=== PATIENT | female | born 1980 | race Hispanic/Latino ===

== ENCOUNTER 2017-05-18 10:51 | Emergency (ER) | payer OTHER ==
[2017-05-18 10:57] VITALS: BP 117/86; PULSE 93; RESP 16; TEMP 96; O2SAT 100
--- NOTE | 2017-05-18 11:11 | ED PDOC ---
HPI: Abdomen Time Seen by Provider: 05/18/17 10:59 Additional Complaint(s): Patient is a 37 y/o F A1, LMP March, home test positive, presenting with suprapubic cramping and vaginal bleeding. Patient reports vaginal bleeding that began 2 days ago. It stopped yesterday but then continued today with some passage of clots so she presented to ED. Denies fever , dysuria, nausea/vomiting or current abdominal pain. Past Medical History Vital Signs: Last Vital Signs Temp 96.0 F L 05/18/17 10:56 Pulse 93 H 05/18/17 10:56 Resp 16 05/18/17 10:56 BP 117/86 05/18/17 10:56 Pulse Ox 100 05/18/17 13:00 - Family History Family History: States: No Known Family Hx - Home Medications Home Medications: Ambulatory Orders Medication Instructions Recorded Cyclobenzaprine [Flexeril] 5 mg PO TID PRN #15 tab 03/09/15 Naproxen 500 mg PO BID #30 tab 03/09/15 - Allergies Allergies/Adverse Reactions: Allergies Allergy/AdvReac Type Severity Reaction Status Date / Time No Known Allergies Allergy Verified 05/18/17 11:06 Review of Systems ROS Statement: Except As Marked, All Systems Reviewed And Found Negative Constitutional: Negative for: Fever, Chills Cardiovascular: Negative for: Chest Pain, Palpitations Respiratory: Negative for: Cough, Shortness of Breath, SOB with Exertion, Wheezing Gastrointestinal: Positive for: Abdominal Pain (suprapubic cramping now resolved ). Negative for: Nausea, Vomiting, Diarrhea, Constipation Genitourinary Female: Positive for: Vaginal Bleeding. Negative for: Dysuria, Frequency, Incontinence, Hematuria Musculoskeletal: Negative for: Neck Pain Neurological: Negative for: Weakness, Numbness, Altered Mental Status, Headache Physical Exam - Reviewed Nursing Documentation Reviewed: Yes Vital Signs Reviewed: Yes - Physical Exam Appears: Positive for: Well, Non-toxic Skin: Positive for: Normal Color, Warm, DRY Eye Exam: Positive for: EOMI, Normal appearance, PERRL Neck: Positive for: Supple Cardiovascular/Chest: Positive for: Regular Rate, Rhythm Respiratory: Positive for: CNT, Normal Breath Sounds Gastrointestinal/Abdominal: Positive for: Soft. Negative for: Tenderness Back: Positive for: Normal Inspection. Negative for: L CVA Tenderness, R CVA Tenderness Extremity: Positive for: Normal ROM. Negative for: Tenderness, Pedal Edema Neurologic/Psych: Positive for: Alert, commercial administrator II-XII, Gait (steady) - Laboratory Results Result Diagrams: 05/18/17 11:30 05/18/17 11:30 - ECG O2 Sat by Pulse Oximetry: 100 Medical Decision Making Medical Decision Making: Patient is and presenting with vaginal bleeding. No current abdominal pain. R/o ectopic --labs --transvaginal u/s 12:14PM bhcg>3700. P:u/s and type/screen Patient reported that she had to go to work. I informed her that her blood screen had not resulted (hemolyzed sample on first attempt) which is a test i need to ensure healthy additional pregnancies and that I need ultrasound to r/o ectopic . I explained to patient and that I was concerned for life threatening ectopic that could rupture. Patient agreed to stay till 1:30 for labs and u/s. 12:42 Nurse went to reevaluate patient and found her dressed. Patient walked out of ED while nurse was coming to tell me that patient was leaving. Patient had eloped from the ED before I reached her room. Disposition - Clinical Impression Clinical Impression: Vaginal bleeding in - Disposition Disposition: Eloped Disposition Time: 12:47 Condition: UNKNOWN
[2017-05-18 11:54] LABS: ALB/GLOB RATIO 1.1 (1.0-2.1); BASO % 0.4 % (0.0-2.0); BILIRUBIN,TOTAL 0.8 mg/dl (0.2-1.3); CALCIUM 8.4 mg/dL (8.4-10.2); CARBON DIOXIDE 21 mmol/L (22-30); CHLORIDE 108 mmol/L (98-107); EOS # 0.5 K/uL (0.0-0.7); EOS % 4.9 % (0.0-4.0); GFR AFRICAN-AMERICAN > 60; GLUCOSE,RANDOM 88 mg/dL (65-105); LYMPH # 1.7 K/uL (1.0-4.3); LYMPH % 18.1 % (20.0-40.0); MEAN CORPUSCULAR HEMOGLOBIN 30.7 pg (27.0-31.0); MEAN CORPUSCULAR HGB CONC 33.8 g/dL (33.0-37.0); MEAN PLATELET VOLUME 8.7 fl (7.2-11.7); MONO # 0.5 K/uL (0.0-0.8); MONO % 4.8 % (0.0-10.0); NEUT # 6.9 K/uL (1.8-7.0); NEUT % 71.8 % (50.0-75.0); RED CELL DISTRIBUTION WIDTH 13.7 % (11.5-14.5); SODIUM 137 mmol/l (132-148); TOTAL PROTEIN 7.4 G/DL (6.3-8.2); WHITE BLOOD COUNT 9.6 K/uL (4.8-10.8)
[2017-05-18 12:02] LABS: ALKALINE PHOSPHATASE 51 U/L (38-126); ALT/SGPT 29 U/L (9-52); AST/SGOT 26 U/L (14-36); BLOOD UREA NITROGEN 9 mg/dl (7-17); POTASSIUM 4.1 MMOL/L (3.6-5.0)
[2017-05-18 12:44] LABS: PH,URINE 6.5 (5.0-8.0); URINE BILIRUBIN MODERATE (NEGATIVE); URINE BLOOD LARGE (NEGATIVE); URINE COLOR RED (YELLOW); URINE GLUCOSE (UA) NEGATIVE (Normal); URINE KETONE 15 mg/dL (NEGATIVE)
[2017-05-18 12:45] LABS: RBC URINE > 100 /hpf (0-3); URINE LEUKOCYTE ESTERASE TRACE Leu/uL (Negative); URINE PROTEIN > 300 mg/dL (NEGATIVE); WBC URINE 12 /hpf (0-5)
[2017-05-18 12:46] LABS: URINE BACTERIA OCC (<OCC)
== END 2017-05-18 12:45 | disposition left against medical advice (07) ==
LOC: H.ER 10:51
DX: O20.8 Other hemorrhage in early pregnancy (principal)

== ENCOUNTER 2017-05-18 16:32 | Emergency (ER) | payer OTHER ==
[2017-05-18 16:47] VITALS: BP 147/53; PULSE 80; RESP 16; TEMP 97.8; O2SAT 99
--- NOTE | 2017-05-18 16:58 | ED PDOC ---
HPI: Female Pain Time Seen by Provider: 05/18/17 16:49 Chief Complaint (Nursing): Abdominal Pain Chief Complaint (Provider): with vaginal bleeding History Per: Patient Additional Complaint(s): 37 year old female A1, approximately 5 weeks presents to ED with vaginal bleeding that started today. Patient was seen in ER earlier this afternoon but had to leave and she now returns to have ultrasound completed. Patient denies change in vaginal bleeding since previous visit several hours ago. She denies any abdominal pain. Past Medical History Reviewed: Historical Data, Nursing Documentation, Vital Signs Vital Signs: Last Vital Signs Temp 97.8 F 05/18/17 16:44 Pulse 80 05/18/17 16:44 Resp 16 05/18/17 16:44 BP 147/53 L 05/18/17 16:44 Pulse Ox 99 05/18/17 16:44 - Medical History PMH: No Chronic Diseases - Surgical History Surgical History: Appendectomy - Family History Family History: States: No Known Family Hx - Living Arrangements Living Arrangements: With Family - Social History Current smoker - smoking cessation education provided: No Alcohol: None Drugs: Denies - Home Medications Home Medications: Ambulatory Orders Medication Instructions Recorded Cyclobenzaprine [Flexeril] 5 mg PO TID PRN #15 tab 03/09/15 Naproxen 500 mg PO BID #30 tab 03/09/15 Nitrofurantoin Macrocrystals 100 mg PO BID #14 cap 05/18/17 [Macrobid] - Allergies Allergies/Adverse Reactions: Allergies Allergy/AdvReac Type Severity Reaction Status Date / Time No Known Allergies Allergy Verified 05/18/17 16:44 Review of Systems ROS Statement: Except As Marked, All Systems Reviewed And Found Negative Constitutional: Negative for: Fever Gastrointestinal: Negative for: Abdominal Pain Genitourinary Female: Positive for: Vaginal Bleeding Physical Exam - Reviewed Nursing Documentation Reviewed: Yes Vital Signs Reviewed: Yes - Physical Exam Appears: Positive for: Well, Non-toxic, No Acute Distress Skin: Negative for: Rash Eye Exam: Positive for: Normal appearance Cardiovascular/Chest: Positive for: Regular Rate, Rhythm Respiratory: Positive for: Normal Breath Sounds Gastrointestinal/Abdominal: Positive for: Soft. Negative for: Tenderness, Distended, Guarding, Rebound Back: Positive for: Normal Inspection Extremity: Positive for: Normal ROM Neurologic/Psych: Positive for: Alert, Oriented - ECG O2 Sat by Pulse Oximetry: 99 Pulse Ox Interpretation: Normal - Other Rad OB US X-Ray: Read By Radiologist X-Ray Interpretation: see below Medical Decision Making Medical Decision Makin37 year old female with vaginal bleeding Previous records reviewed. Labs are all normal except UTI is noted. Plan: Type and screen OB US Blood type: O positive. US: FINDINGS: Gestation: Intrauterine sac noted without pole/ yolk sac detected. No cardiac activity Uterus/cervix: No myometrial mass. Ovaries: Unremarkable. No mass. Free fluid: No free fluid. IMPRESSION: Intrauterine cannot be confirmed or excluded. Continued sonographic followup and correlation with beta hCG levels as clinically indicated. Patient aware of diagnostic testing results. Rx macrobid for UTI. Patient was advised to return to emergency Department in 2 days for repeat beta. Disposition - Clinical Impression Clinical Impression: Threatened in early , Urinary tract infection - Patient ED Disposition Is Patient to be Admitted: No Counseled Patient/Family Regarding: Studies Performed, Diagnosis, Need For Followup - Disposition [facility]errals: [facility]] Disposition: Routine/Home Disposition Time: 18:34 Condition: STABLE Additional Instructions: Return in 2 days for repeat blood work or sooner if acutely worse. Prescriptions: Nitrofurantoin Macrocrystals [Macrobid] 100 mg PO BID #14 cap Instructions: Threatened Miscarriage (ED), Urinary Tract Infection in Women (ED ), First Trimester Vaginal Bleed (ED) Forms: [employer] (Citizen Of [place])
--- NOTE | 2017-05-19 11:43 | US ---
HISTORY: with bleeding ; LMP is dated 04/02/2017 suggesting estimated gestational age of 6 weeks 4 days. COMPARISON: None available. TECHNIQUE: Transabdominal and transvaginal pelvic ultrasound was performed with longitudinal and transverse images submitted for interpretation. FINDINGS: UTERUS: Measures 10.1 x 7.4 x 6.6 cm. Uterus appears mildly enlarged and anteverted without myometrial mass identified. ENDOMETRIUM: Within the endometrial cavity is a fluid collection measuring a mean diameter of 0.6 cm suggesting estimated gestational age of less than 6 weeks by Stent[employer] ultrasound criteria. No pole yolk sac is identified within the small volume. CERVIX: No cervical abnormality identified. RIGHT OVARY: Measures 1.9 x 1.4 x 1.3 cm . No solid mass. Normal flow. LEFT OVARY: Measures 2.0 x 2.3 x 1.6 cm . No solid mass. Normal flow. FREE FLUID: No significant free fluid noted. OTHER FINDINGS: None. IMPRESSION: The presumed gestational sac is identified within the endometrial cavity with a mean sac diameter is 0.6 cm but no pole or yolk sac identified at this time. This may represent in viable intrauterine gestation of less than 5 weeks estimated gestational age which is discordant with the low LMP derived dates. Failure of gestation is also possibility. Clinical correlation is advised as well as sonographic follow-up in 1 week. Concordant preliminary report from [facility], 05/18/2017.
== END 2017-05-18 18:46 | disposition home or self-care (01) ==
LOC: H.ER 16:32
DX: O20.0 Threatened abortion (principal); O23.40 Unspecified infection of urinary tract in pregnancy, unspecified trimester

== ENCOUNTER 2017-05-21 19:39 | Emergency (ER) | payer OTHER ==
[2017-05-21 20:20] VITALS: BP 129/65; PULSE 74; RESP 20; TEMP 97.4; O2SAT 99
--- NOTE | 2017-05-21 22:12 | ED PDOC ---
HPI: Female Pain Time Seen by Provider: 05/21/17 20:37 Chief Complaint (Nursing): Female Genitourinary Chief Complaint (Provider): vaginal bleeding Quality Of Discomfort: denies: "Pain" Additional Complaint(s): Vaginal bleeding with . Advised to return to ER for repeat bloodwork. Reports that she has minimal pelvic pain. No sob/cp. BLeeding with clots. Past Medical History Reviewed: Historical Data, Nursing Documentation, Vital Signs Vital Signs: Last Vital Signs Temp 97.4 F L 05/21/17 20:18 Pulse 74 05/21/17 20:18 Resp 20 05/21/17 20:18 BP 129/65 05/21/17 20:18 Pulse Ox 99 05/21/17 20:18 - Medical History PMH: No Chronic Diseases - Surgical History Surgical History: Appendectomy - Family History Family History: States: No Known Family Hx - Home Medications Home Medications: Ambulatory Orders Medication Instructions Recorded Cyclobenzaprine [Flexeril] 5 mg PO TID PRN #15 tab 03/09/15 Naproxen 500 mg PO BID #30 tab 03/09/15 Nitrofurantoin Macrocrystals 100 mg PO BID #14 cap 05/18/17 [Macrobid] - Allergies Allergies/Adverse Reactions: Allergies Allergy/AdvReac Type Severity Reaction Status Date / Time No Known Allergies Allergy Verified 05/18/17 16:44 Review of Systems Constitutional: Negative for: Fever, Chills, Weakness, Malaise Gastrointestinal: Negative for: Nausea, Vomiting, Abdominal Pain, Diarrhea Genitourinary Female: Positive for: Vaginal Bleeding. Negative for: Pelvic Pain Physical Exam - Reviewed Nursing Documentation Reviewed: Yes Vital Signs Reviewed: Yes - Physical Exam Appears: Positive for: Well, No Acute Distress Gastrointestinal/Abdominal: Positive for: Soft. Negative for: Tenderness - ECG O2 Sat by Pulse Oximetry: 99 - Progress ED Course And Treament: Markedly decreased betahcg from 3777 to 466 Disposition - Clinical Impression Clinical Impression: Miscarriage - Disposition [facility]errals: [facility]] - 05/27/17 Disposition: Routine/Home Disposition Time: 21:00 Condition: GOOD Instructions: Spontaneous Miscarriage (ED) Print Language: PERUVIAN
== END 2017-05-21 22:20 | disposition home or self-care (01) ==
LOC: H.ER 19:39
DX: O03.9 Complete or unspecified spontaneous abortion without complication (principal)